=== PATIENT | female | born 1940 | race Caucasian/White ===

== ENCOUNTER 2021-08-29 15:52 | Inpatient (IN) | payer OTHER ==
[2021-08-29 17:05] LABS: BASO % 0.9 % (0-2.0); EOS % 2.7 % (0-4.5); HEMATOCRIT 24.2 % (32.4-45.2); LYMPH % 9.2 % (8-40); MCH 28.8 pg (25.7-33.7); MEAN CELL VOLUME 87.3 fl (80-96); MEAN PLT VOLUME 6.5 fl (7.5-11.1); MONO % 10.2 % (3.8-10.2); PLATELET COUNT 204 10^3/uL (134-434); RBC 2.77 M/mm3 (3.60-5.2); RDW 21.3 % (11.6-15.6); WHITE BLOOD COUNT 3.7 K/mm3 (4.0-10.0)
[2021-08-29 17:24] LABS: CALCIUM 9.2 mg/dL (8.5-10.1)
[2021-08-29 17:25] LABS: ALBUMIN 2.8 g/dl (3.4-5.0); BLOOD UREA NITROGEN 15.6 mg/dL (7-18)
[2021-08-29 17:28] LABS: CREATININE 0.6 mg/dL (0.55-1.3)
[2021-08-29 17:29] LABS: BILIRUBIN,TOTAL 0.5 mg/dL (0.2-1)
[2021-08-29 17:56] LABS: ANISOCYTOSIS 1+; MACROCYTOSIS 1+; PLATELET ESTIMATE NORMAL
[2021-08-29 19:17] LABS: PROTHROMBIN TIME (PATIENT) 63.5 SEC (9.7-13.0)
[2021-08-29 19:19] LABS: ACTIVATED PTT 52.3 SECONDS (25.2-36.5)
[2021-08-29 19:34] LABS: INR 5.57 (0.83-1.09)
[2021-08-30 08:24] VITALS: BMI 24.0
[2021-08-30 09:05] LABS: BASO % 1.3 % (0-2.0); EOS % 3.6 % (0-4.5); HEMATOCRIT 24.5 % (32.4-45.2); HEMOGLOBIN 8.3 GM/dL (10.7-15.3); LYMPH % 12.5 % (8-40); MCH 28.8 pg (25.7-33.7); MCHC 33.7 g/dl (32.0-36.0); MEAN CELL VOLUME 85.5 fl (80-96); MEAN PLT VOLUME 6.7 fl (7.5-11.1); MONO % 11.4 % (3.8-10.2); NEUT % 71.2 % (42.8-82.8); PLATELET COUNT 185 10^3/uL (134-434); RBC 2.87 M/mm3 (3.60-5.2); RDW 21.4 % (11.6-15.6)
[2021-08-30 09:22] LABS: PROTHROMBIN TIME (PATIENT) 57.6 SEC (9.7-13.0)
[2021-08-30 09:29] LABS: INR 4.85 (0.83-1.09)
[2021-08-30 09:30] LABS: BLOOD UREA NITROGEN 11.2 mg/dL (7-18); CALCIUM 8.5 mg/dL (8.5-10.1)
[2021-08-30 09:33] LABS: CREATININE 0.5 mg/dL (0.55-1.3)
[2021-08-30] MEDS ORDERED: ACETAMINOPHEN 325 MG TABLET (FP) PO PRN (13:45)
[2021-08-30] MEDS: POTASSIUM CHLORIDE TABS 10 MEQ TABLET.ER (FP) PO SCH (15:03)
[2021-08-30] MEDS: DONEPEZIL HCL 10 MG TABLET (FP) PO SCH (15:04)
[2021-08-30] MEDS: AMIODARONE HCL 200 MG TABLET PO SCH (15:04)
[2021-08-30] MEDS: HYDROCHLOROTHIAZIDE 12.5 MG CAPSULE (FP) PO SCH (15:04)
[2021-08-30] MEDS: DOCUSATE SODIUM 100 MG CAPSULE (FP) PO SCH (15:04)
[2021-08-30] MEDS: FERROUS SO4 325 MG TABLET (FP) PO SCH (15:04)
[2021-08-30] MEDS ORDERED: PT OWN MED DRAWER 7, Y5N ONE (15:34)
[2021-08-30] MEDS: MUPIROCIN 2% TOPICAL OINTMENT 22 GM TUBE TP SCH ×2 (16:00→21:18)
[2021-08-30] MEDS: WARFARIN NA 1 MG TABLET PO SCH (17:16)
[2021-08-31] MEDS: POTASSIUM CHLORIDE TABS 10 MEQ TABLET.ER (FP) PO SCH (09:26)
[2021-08-31] MEDS: DOCUSATE SODIUM 100 MG CAPSULE (FP) PO SCH (09:27)
[2021-08-31] MEDS: HYDROCHLOROTHIAZIDE 12.5 MG CAPSULE (FP) PO SCH (09:27)
[2021-08-31] MEDS: DONEPEZIL HCL 10 MG TABLET (FP) PO SCH (09:27)
[2021-08-31] MEDS: AMIODARONE HCL 200 MG TABLET PO SCH (09:27)
[2021-08-31] MEDS: FERROUS SO4 325 MG TABLET (FP) PO SCH (09:27)
[2021-08-31] MEDS: MUPIROCIN 2% TOPICAL OINTMENT 22 GM TUBE TP SCH ×2 (09:28→21:42)
[2021-08-31] MEDS ORDERED: FUROSEMIDE 40 MG/4 ML INJECTABLE VIAL IVPUSH ONE (13:30)
[2021-08-31 13:55] LABS: EOS % 2.8 % (0-4.5); HEMATOCRIT 27.2 % (32.4-45.2); LYMPH % 13.7 % (8-40); MCH 28.7 pg (25.7-33.7); MONO % 13.3 % (3.8-10.2); NEUT % 69.2 % (42.8-82.8); PLATELET COUNT 199 10^3/uL (134-434); RBC 3.12 M/mm3 (3.60-5.2); RDW 21.7 % (11.6-15.6); WHITE BLOOD COUNT 3.6 K/mm3 (4.0-10.0)
[2021-08-31 14:11] LABS: INR 3.4 (0.83-1.09); PROTHROMBIN TIME (PATIENT) 38.5 SEC (9.7-13.0)
[2021-08-31 14:13] LABS: ALBUMIN 2.7 g/dl (3.4-5.0); BLOOD UREA NITROGEN 9.6 mg/dL (7-18); CALCIUM 8.4 mg/dL (8.5-10.1)
[2021-08-31 14:17] LABS: CREATININE 0.5 mg/dL (0.55-1.3)
[2021-08-31 14:18] LABS: BILIRUBIN,TOTAL 0.8 mg/dL (0.2-1); TOT PROT 5.8 g/dl (6.4-8.2)
[2021-08-31 14:35] LABS: ERYTHROCYTE SEDIMENTATION RATE 8 mm/hr (0-30)
[2021-08-31] MEDS ORDERED: PT OWN MED DRAWER 7, Y5N ONE ×2 (17:15→17:39)
[2021-08-31] MEDS: WARFARIN NA 1 MG TABLET PO SCH ×2 (17:20→17:34)
[2021-08-31 21:22] LABS: HEMATOCRIT 26.7 % (32.4-45.2); HEMOGLOBIN 8.8 GM/dL (10.7-15.3); MCHC 33.1 g/dl (32.0-36.0); MEAN CELL VOLUME 87.6 fl (80-96); MEAN PLT VOLUME 7.6 fl (7.5-11.1); PLATELET COUNT 211 10^3/uL (134-434); RBC 3.05 M/mm3 (3.60-5.2); WHITE BLOOD COUNT 3.3 K/mm3 (4.0-10.0)
[2021-08-31 21:29] LABS: INR 3.33 (0.83-1.09); PROTHROMBIN TIME (PATIENT) 37.8 SEC (9.7-13.0)
[2021-08-31 21:31] LABS: ACTIVATED PTT 37.7 SECONDS (25.2-36.5)
[2021-09-01 09:29] LABS: BASO % 1.4 % (0-2.0); EOS % 4.3 % (0-4.5); HEMATOCRIT 27.3 % (32.4-45.2); HEMOGLOBIN 9.1 GM/dL (10.7-15.3); LYMPH % 18.9 % (8-40); MCH 29.4 pg (25.7-33.7); MCHC 33.2 g/dl (32.0-36.0); MEAN CELL VOLUME 88.6 fl (80-96); MEAN PLT VOLUME 6.9 fl (7.5-11.1); MONO % 15.1 % (3.8-10.2); NEUT % 60.3 % (42.8-82.8); PLATELET COUNT 214 10^3/uL (134-434); RBC 3.09 M/mm3 (3.60-5.2); RDW 22.3 % (11.6-15.6); WHITE BLOOD COUNT 2.7 K/mm3 (4.0-10.0)
[2021-09-01] MEDS: DONEPEZIL HCL 10 MG TABLET (FP) PO SCH (09:53)
[2021-09-01] MEDS: HYDROCHLOROTHIAZIDE 12.5 MG CAPSULE (FP) PO SCH (09:53)
[2021-09-01] MEDS: DOCUSATE SODIUM 100 MG CAPSULE (FP) PO SCH (09:53)
[2021-09-01] MEDS: AMIODARONE HCL 200 MG TABLET PO SCH (09:53)
[2021-09-01] MEDS: POTASSIUM CHLORIDE TABS 10 MEQ TABLET.ER (FP) PO SCH (09:53)
[2021-09-01] MEDS: MUPIROCIN 2% TOPICAL OINTMENT 22 GM TUBE TP SCH ×2 (09:53→21:01)
[2021-09-01] MEDS: FERROUS SO4 325 MG TABLET (FP) PO SCH (09:54)
[2021-09-01 10:04] LABS: ALBUMIN 2.5 g/dl (3.4-5.0); BLOOD UREA NITROGEN 9.3 mg/dL (7-18); CALCIUM 8.3 mg/dL (8.5-10.1)
[2021-09-01 10:08] LABS: CREATININE 0.6 mg/dL (0.55-1.3)
[2021-09-01 10:09] LABS: BILIRUBIN,TOTAL 0.7 mg/dL (0.2-1); TOT PROT 5.6 g/dl (6.4-8.2)
[2021-09-02 09:05] LABS: BASO % 1.5 % (0-2.0); HEMATOCRIT 26.8 % (32.4-45.2); HEMOGLOBIN 8.8 GM/dL (10.7-15.3); LYMPH % 18.3 % (8-40); MCH 29.1 pg (25.7-33.7); MEAN CELL VOLUME 88.1 fl (80-96); MEAN PLT VOLUME 6.9 fl (7.5-11.1); MONO % 15.5 % (3.8-10.2); NEUT % 58.7 % (42.8-82.8); PLATELET COUNT 196 10^3/uL (134-434); RBC 3.04 M/mm3 (3.60-5.2); RDW 21.6 % (11.6-15.6); WHITE BLOOD COUNT 2.7 K/mm3 (4.0-10.0)
[2021-09-02 09:12] LABS: INR 2.59 (0.83-1.09); PROTHROMBIN TIME (PATIENT) 29.3 SEC (9.7-13.0)
[2021-09-02 09:36] LABS: CALCIUM 8.3 mg/dL (8.5-10.1)
[2021-09-02 09:37] LABS: ALBUMIN 2.4 g/dl (3.4-5.0)
[2021-09-02 09:40] LABS: CREATININE 0.6 mg/dL (0.55-1.3)
[2021-09-02 09:41] LABS: BILIRUBIN,TOTAL 0.5 mg/dL (0.2-1); TOT PROT 5.3 g/dl (6.4-8.2)
[2021-09-02 10:02] LABS: ANISOCYTOSIS 1+; MACROCYTOSIS 1+; PLATELET ESTIMATE NORMAL
[2021-09-02] MEDS: DONEPEZIL HCL 10 MG TABLET (FP) PO SCH (10:57)
[2021-09-02] MEDS: DOCUSATE SODIUM 100 MG CAPSULE (FP) PO SCH (10:57)
[2021-09-02] MEDS: POTASSIUM CHLORIDE TABS 10 MEQ TABLET.ER (FP) PO SCH (10:57)
[2021-09-02] MEDS: AMIODARONE HCL 200 MG TABLET PO SCH (10:57)
[2021-09-02] MEDS: HYDROCHLOROTHIAZIDE 12.5 MG CAPSULE (FP) PO SCH ×2 (10:57→11:06)
[2021-09-02] MEDS: MUPIROCIN 2% TOPICAL OINTMENT 22 GM TUBE TP SCH ×2 (10:58→21:47)
[2021-09-02] MEDS: FERROUS SO4 325 MG TABLET (FP) PO SCH (10:58)
[2021-09-03 08:04] LABS: BASO % 1.9 % (0-2.0); EOS % 6.7 % (0-4.5); HEMATOCRIT 27.8 % (32.4-45.2); HEMOGLOBIN 9.3 GM/dL (10.7-15.3); LYMPH % 21.5 % (8-40); MCH 29.4 pg (25.7-33.7); MCHC 33.5 g/dl (32.0-36.0); MEAN CELL VOLUME 87.8 fl (80-96); MEAN PLT VOLUME 6.6 fl (7.5-11.1); MONO % 11.1 % (3.8-10.2); NEUT % 58.8 % (42.8-82.8); PLATELET COUNT 197 10^3/uL (134-434); RBC 3.17 M/mm3 (3.60-5.2); RDW 21.4 % (11.6-15.6); WHITE BLOOD COUNT 2.4 K/mm3 (4.0-10.0)
[2021-09-03 08:06] LABS: INR 2.01 (0.83-1.09); PROTHROMBIN TIME (PATIENT) 23.7 SEC (9.7-13.0)
[2021-09-03 08:18] LABS: CALCIUM 8.7 mg/dL (8.5-10.1)
[2021-09-03 08:19] LABS: BLOOD UREA NITROGEN 12.8 mg/dL (7-18)
[2021-09-03 08:22] LABS: CREATININE 0.6 mg/dL (0.55-1.3)
[2021-09-03] MEDS: AMIODARONE HCL 200 MG TABLET PO SCH (11:16)
[2021-09-03] MEDS: DOCUSATE SODIUM 100 MG CAPSULE (FP) PO SCH (11:16)
[2021-09-03] MEDS: HYDROCHLOROTHIAZIDE 12.5 MG CAPSULE (FP) PO SCH (11:16)
[2021-09-03] MEDS: POTASSIUM CHLORIDE TABS 10 MEQ TABLET.ER (FP) PO SCH (11:16)
[2021-09-03] MEDS: FERROUS SO4 325 MG TABLET (FP) PO SCH (11:16)
[2021-09-03] MEDS: MUPIROCIN 2% TOPICAL OINTMENT 22 GM TUBE TP SCH (11:17)
[2021-09-03] MEDS: DONEPEZIL HCL 10 MG TABLET (FP) PO SCH (11:17)
[2021-09-03 14:54] VITALS: BP 133/70; PULSE 72; TEMP 97.8
== END 2021-09-03 15:31 | DRG 605 ==
LOC: JER 15:52 → OBSVTOIN 18:54 → JERBED 18:54 → J8W 08-30 04:24
PROVIDERS: ADMIT Internal Medicine; ATTEND Internal Medicine
PROC: 30233N1 Transfusion of Nonautologous Red Blood Cells into Peripheral Vein, Percutaneous Approach (ICD-10-PCS; principal; 2021-08-29)
DX: S30.1XXA Contusion of abdominal wall, initial encounter (principal); D62 Acute posthemorrhagic anemia; I73.9 Peripheral vascular disease, unspecified; I48.91 Unspecified atrial fibrillation; I11.0 Hypertensive heart disease with heart failure; I50.9 Heart failure, unspecified; F03.90 Unspecified dementia, unspecified severity, without behavioral disturbance, psychotic disturbance, mood disturbance, and anxiety; D64.9 Anemia, unspecified; X58.XXXA Exposure to other specified factors, initial encounter; Y93.9 Activity, unspecified; Z95.2 Presence of prosthetic heart valve; Y92.9 Unspecified place or not applicable; Z95.0 Presence of cardiac pacemaker
CPT/HCPCS: 36415; 36430; 74176-TC; 80048; 80053; 82272; 82607; 82728; 83540; 83550; 84155; 84165; 85025; 85027; 85610; 85651; 85730; 86038; 86850; 86900; 86901; 86922; 93005; 93010; 99285-25; C9803; P9058; U0003; U0005

== ENCOUNTER 2022-02-25 10:36 | Observation (INO) | payer OTHER ==
[2022-02-25 11:15] VITALS: BMI 22.8
[2022-02-25 11:57] LABS: BASO % 1.2 % (0-2.0); EOS % 2.3 % (0-4.5); HEMATOCRIT 24.5 % (32.4-45.2); HEMOGLOBIN 7.9 GM/dL (10.7-15.3); LYMPH % 15.6 % (8-40); MCH 27.8 pg (25.7-33.7); MCHC 32.5 g/dl (32.0-36.0); MEAN CELL VOLUME 85.7 fl (80-96); MONO % 16.2 % (3.8-10.2); NEUT % 64.7 % (42.8-82.8); PLATELET COUNT 157 10^3/uL (134-434); RBC 2.85 M/mm3 (3.60-5.2); RDW 15.7 % (11.6-15.6); WHITE BLOOD COUNT 2.3 K/mm3 (4.0-10.0)
[2022-02-25 12:04] LABS: INR 2.98 (0.83-1.09); PROTHROMBIN TIME (PATIENT) 34.6 SEC (9.7-13.0)
[2022-02-25 12:07] LABS: ACTIVATED PTT 42.5 SECONDS (25.2-36.5)
[2022-02-25 12:17] LABS: ALBUMIN 2.9 g/dl (3.4-5.0); BLOOD UREA NITROGEN 16.2 mg/dL (7-18); CALCIUM 8.4 mg/dL (8.5-10.1)
[2022-02-25 12:20] LABS: CREATININE 0.6 mg/dL (0.55-1.3)
[2022-02-25 12:22] LABS: BILIRUBIN,TOTAL 0.3 mg/dL (0.2-1); TOT PROT 5.7 g/dl (6.4-8.2)
[2022-02-25] MEDS ORDERED: WARFARIN NA 1 MG TABLET PO SCH (18:00)
[2022-02-25] MEDS: DONEPEZIL HCL 10 MG TABLET (FP) PO SCH (21:34)
[2022-02-25] MEDS: DOCUSATE SODIUM 100 MG CAPSULE (FP) PO SCH (21:34)
[2022-02-25] MEDS: ACETAMINOPHEN 325 MG TABLET (FP) PO PRN (21:34)
[2022-02-26 08:58] LABS: INR 2.85 (0.83-1.09); PROTHROMBIN TIME (PATIENT) 33.1 SEC (9.7-13.0)
[2022-02-26 09:03] LABS: BASO % 1.2 % (0-2.0); EOS % 3.1 % (0-4.5); HEMATOCRIT 28.1 % (32.4-45.2); HEMOGLOBIN 9.4 GM/dL (10.7-15.3); LYMPH % 18.6 % (8-40); MCH 28.6 pg (25.7-33.7); MCHC 33.3 g/dl (32.0-36.0); MEAN CELL VOLUME 85.8 fl (80-96); MONO % 14.8 % (3.8-10.2); NEUT % 62.3 % (42.8-82.8); PLATELET COUNT 148 10^3/uL (134-434); RBC 3.27 M/mm3 (3.60-5.2); RDW 15.7 % (11.6-15.6); WHITE BLOOD COUNT 2.2 K/mm3 (4.0-10.0)
[2022-02-26 09:25] LABS: ALBUMIN 3.1 g/dl (3.4-5.0); BLOOD UREA NITROGEN 9.4 mg/dL (7-18)
[2022-02-26 09:28] LABS: CALCIUM 8.3 mg/dL (8.5-10.1)
[2022-02-26 09:31] LABS: CREATININE 0.5 mg/dL (0.55-1.3)
[2022-02-26 09:32] LABS: BILIRUBIN,TOTAL 0.7 mg/dL (0.2-1); TOT PROT 5.6 g/dl (6.4-8.2)
[2022-02-26] MEDS: PANTOPRAZOLE 20 MG TABLET PO SCH (09:45)
[2022-02-26] MEDS: POTASSIUM CHLORIDE TABS 20 MEQ TABLET.ER (FP) PO SCH (09:45)
[2022-02-26] MEDS: ACETAMINOPHEN 325 MG TABLET (FP) PO PRN ×2 (09:45→21:30)
[2022-02-26] MEDS: AMIODARONE HCL 200 MG TABLET PO SCH (09:45)
[2022-02-26] MEDS: HYDROCHLOROTHIAZIDE 25 MG TABLET (FP) PO SCH (09:45)
[2022-02-26] MEDS: FERROUS SO4 325 MG TABLET (FP) PO SCH (09:45)
[2022-02-26] MEDS: SODIUM CHLORIDE 1 GM TABLET PO SCH (14:45)
[2022-02-26] MEDS: DONEPEZIL HCL 10 MG TABLET (FP) PO SCH (21:33)
[2022-02-26] MEDS: DOCUSATE SODIUM 100 MG CAPSULE (FP) PO SCH (21:33)
[2022-02-27] MEDS ORDERED: AMINO ACIDS/PROTEIN HYDROLYS 30 ML LIQUID.PKT PO SCH (08:00)
[2022-02-27 08:59] LABS: BASO % 1.2 % (0-2.0); EOS % 3.4 % (0-4.5); HEMATOCRIT 31.1 % (32.4-45.2); HEMOGLOBIN 10.4 GM/dL (10.7-15.3); LYMPH % 15.3 % (8-40); MCH 28.3 pg (25.7-33.7); MCHC 33.5 g/dl (32.0-36.0); MEAN CELL VOLUME 84.7 fl (80-96); MEAN PLT VOLUME 7.3 fl (7.5-11.1); MONO % 16.7 % (3.8-10.2); NEUT % 63.4 % (42.8-82.8); PLATELET COUNT 166 10^3/uL (134-434); RBC 3.67 M/mm3 (3.60-5.2); RDW 15.7 % (11.6-15.6); WHITE BLOOD COUNT 2.3 K/mm3 (4.0-10.0)
[2022-02-27 09:08] LABS: INR 2.47 (0.83-1.09); PROTHROMBIN TIME (PATIENT) 28.7 SEC (9.7-13.0)
[2022-02-27 09:25] LABS: CALCIUM 8.5 mg/dL (8.5-10.1)
[2022-02-27 09:27] LABS: CREATININE 0.5 mg/dL (0.55-1.3)
[2022-02-27] MEDS ORDERED: MULTIVITAMINS (DAILY MVI) TABLET (FP) PO SCH (10:00)
[2022-02-27] MEDS: POTASSIUM CHLORIDE TABS 20 MEQ TABLET.ER (FP) PO SCH (10:14)
[2022-02-27] MEDS: AMIODARONE HCL 200 MG TABLET PO SCH (10:14)
[2022-02-27] MEDS: FERROUS SO4 325 MG TABLET (FP) PO SCH (10:14)
[2022-02-27] MEDS: PANTOPRAZOLE 20 MG TABLET PO SCH (10:14)
[2022-02-27] MEDS: SODIUM CHLORIDE 1 GM TABLET PO SCH (10:14)
[2022-02-27] MEDS: HYDROCHLOROTHIAZIDE 25 MG TABLET (FP) PO SCH (10:14)
[2022-02-27 13:52] VITALS: TEMP 97.9
[2022-02-27 14:27] VITALS: BP 92/53; PULSE 62
[2022-02-27] MEDS ORDERED: WARFARIN NA 1 MG TABLET PO SCH ×2 (15:22→18:00)
[2022-02-28] MEDS ORDERED: WARFARIN NA 1 MG TABLET PO SCH (18:00)
== END 2022-02-27 19:39 ==
LOC: JER 10:36 → JERBED 12:36 → J8W 15:49
PROVIDERS: ADMIT Internal Medicine; ATTEND Internal Medicine
PROC: 30233N1 Transfusion of Nonautologous Red Blood Cells into Peripheral Vein, Percutaneous Approach (ICD-10-PCS; principal; 2022-02-25)
DX: D64.9 Anemia, unspecified (principal); I48.91 Unspecified atrial fibrillation; F41.8 Other specified anxiety disorders; F03.90 Unspecified dementia, unspecified severity, without behavioral disturbance, psychotic disturbance, mood disturbance, and anxiety; Z88.8 Allergy status to other drugs, medicaments and biological substances; I99.9 Unspecified disorder of circulatory system; I05.9 Rheumatic mitral valve disease, unspecified; Z79.01 Long term (current) use of anticoagulants; D72.819 Decreased white blood cell count, unspecified
CPT/HCPCS: 36415; 36430; 71045-TC-FY; 80048; 80053; 82272; 82607; 82728; 83540; 85025; 85610; 85730; 86850; 86900; 86901; 86922; 93005; 93010; 99285-25; C9803-CS; G0378; P9058; U0003; U0005

== ENCOUNTER 2022-07-09 15:25 | Inpatient (IN) | payer OTHER ==
[2022-07-09 16:05] VITALS: BMI 23.6
[2022-07-09 19:15] LABS: BASO % 1.1 % (0-2.0); EOS % 3.1 % (0-4.5); HEMATOCRIT 20.9 % (32.4-45.2); LYMPH % 13.4 % (8-40); MCHC 31.6 g/dl (32.0-36.0); MEAN CELL VOLUME 85.4 fl (80-96); MEAN PLT VOLUME 7.1 fl (7.5-11.1); MONO % 9.2 % (3.8-10.2); NEUT % 73.2 % (42.8-82.8); PLATELET COUNT 185 10^3/uL (134-434); RBC 2.45 M/mm3 (3.60-5.2); RDW 16.1 % (11.6-15.6); WHITE BLOOD COUNT 3.3 K/mm3 (4.0-10.0)
[2022-07-09 19:22] LABS: INR 3.79 (0.83-1.09); PROTHROMBIN TIME (PATIENT) 44.2 SEC (9.7-13.0)
[2022-07-09 19:23] LABS: HEMOGLOBIN 6.6 GM/dL (10.7-15.3)
[2022-07-09 19:30] LABS: ALBUMIN 2.6 g/dl (3.4-5.0); BLOOD UREA NITROGEN 20.2 mg/dL (7-18); CALCIUM 8.3 mg/dL (8.5-10.1)
[2022-07-09 19:31] LABS: MAGNESIUM 1.9 mg/dL (1.8-2.4)
[2022-07-09 19:34] LABS: CREATININE 0.6 mg/dL (0.55-1.3)
[2022-07-09 19:35] LABS: BILIRUBIN,TOTAL 0.3 mg/dL (0.2-1); TOT PROT 5.2 g/dl (6.4-8.2)
[2022-07-09 22:37] LABS: EPI CELLS 10 /uL (0-25.1); HYALINE CASTS 0 /uL (0-3.1); PH,URINE 7.5 (5.0-8.0); URINE APPEARANCE CLOUDY; URINE BACTERIA 210 /uL (0-1359); URINE BILIRUBIN NEGATIVE (NEGATIVE); URINE COLOR YELLOW; URINE GLUCOSE (UA) NEGATIVE (NEGATIVE); URINE KETONE NEGATIVE (NEGATIVE); URINE LEUK ESTERASE 1+ (NEGATIVE); URINE NITRITE NEGATIVE (NEGATIVE); URINE PROTEIN NEGATIVE (NEGATIVE); URINE RBC 16 /uL (0-23.9); URINE WBC 15 /uL (0-25.8)
[2022-07-10] MEDS ORDERED: MELATONIN 5 MG TABLETS PO ONE (01:35)
[2022-07-10] MEDS ORDERED: MELATONIN 5 MG TABLETS ONE (01:36)
[2022-07-10 06:48] LABS: BASO % 1.3 % (0-2.0); EOS % 3.4 % (0-4.5); HEMATOCRIT 24.4 % (32.4-45.2); HEMOGLOBIN 7.9 GM/dL (10.7-15.3); LYMPH % 10.9 % (8-40); MCH 27.4 pg (25.7-33.7); MCHC 32.3 g/dl (32.0-36.0); MEAN PLT VOLUME 7.2 fl (7.5-11.1); MONO % 12.4 % (3.8-10.2); PLATELET COUNT 168 10^3/uL (134-434); RBC 2.88 M/mm3 (3.60-5.2); RDW 15.8 % (11.6-15.6); WHITE BLOOD COUNT 3.6 K/mm3 (4.0-10.0)
[2022-07-10 07:04] LABS: INR 3.43 (0.83-1.09); PROTHROMBIN TIME (PATIENT) 39.9 SEC (9.7-13.0)
[2022-07-10 07:08] LABS: ALBUMIN 2.6 g/dl (3.4-5.0); BLOOD UREA NITROGEN 17.5 mg/dL (7-18); MAGNESIUM 1.7 mg/dL (1.8-2.4)
[2022-07-10 07:11] LABS: CREATININE 0.5 mg/dL (0.55-1.3); PHOSPHOROUS 2.3 mg/dL (2.5-4.9)
[2022-07-10 07:12] LABS: BILIRUBIN,TOTAL 0.8 mg/dL (0.2-1); TOT PROT 5.2 g/dl (6.4-8.2)
[2022-07-10] MEDS ORDERED: PANTOPRAZOLE SODIUM 40 MG/100 ML BAG IVPB ONE (09:10)
[2022-07-10] MEDS ORDERED: CEFTRIAXONE 1 GM/50 ML BAG ONE (09:11)
[2022-07-10] MEDS: CEFTRIAXONE 1 GM in DEXTROSE 5%-WATER - 50 ML IVPB SCH (09:15)
[2022-07-10] MEDS: PANTOPRAZOLE SODIUM 40 MG VIAL IVPUSH SCH (09:53)
[2022-07-11] MEDS: CEFTRIAXONE 1 GM in DEXTROSE 5%-WATER - 50 ML IVPB SCH (09:07)
[2022-07-11] MEDS: PANTOPRAZOLE SODIUM 40 MG VIAL IVPUSH SCH (09:07)
[2022-07-11] MEDS ORDERED: MAGNESIUM SULF 50% (8.12 MEQ/2 ML-1 GM VIAL) IVPB ONE (09:39)
[2022-07-11] MEDS: AMIODARONE HCL 200 MG TABLET PO SCH (09:56)
[2022-07-11] MEDS: ASCORBIC ACID 500 MG TABLET (FP) PO SCH (09:56)
[2022-07-11] MEDS ORDERED: IRON SUCROSE INJECTION 200 MG in SODIUM CHLORIDE 90 ML IVPB ONE (10:15)
[2022-07-11] MEDS: DOCUSATE SODIUM 100 MG CAPSULE (FP) PO SCH (21:44)
[2022-07-11] MEDS: MELATONIN 5 MG TABLETS PO PRN (21:44)
[2022-07-11] MEDS: DONEPEZIL HCL 10 MG TABLET (FP) PO SCH (21:44)
[2022-07-12 07:25] LABS: EOS % 1.7 % (0-4.5); HEMOGLOBIN 8.4 GM/dL (10.7-15.3); LYMPH % 7.8 % (8-40); MCH 27.3 pg (25.7-33.7); MCHC 32.3 g/dl (32.0-36.0); MEAN CELL VOLUME 84.5 fl (80-96); MEAN PLT VOLUME 7.2 fl (7.5-11.1); MONO % 16.7 % (3.8-10.2); NEUT % 72.8 % (42.8-82.8); PLATELET COUNT 169 10^3/uL (134-434); RBC 3.08 M/mm3 (3.60-5.2); RDW 15.9 % (11.6-15.6); WHITE BLOOD COUNT 3.5 K/mm3 (4.0-10.0)
[2022-07-12 07:57] LABS: INR 2.54 (0.83-1.09); PROTHROMBIN TIME (PATIENT) 29.5 SEC (9.7-13.0)
[2022-07-12] MEDS: PANTOPRAZOLE SODIUM 40 MG VIAL IVPUSH SCH (09:30)
[2022-07-12] MEDS: CEFTRIAXONE 1 GM in DEXTROSE 5%-WATER - 50 ML IVPB SCH (09:30)
[2022-07-12] MEDS: AMIODARONE HCL 200 MG TABLET PO SCH (09:33)
[2022-07-12] MEDS: ASCORBIC ACID 500 MG TABLET (FP) PO SCH (09:34)
[2022-07-12] MEDS: MELATONIN 5 MG TABLETS PO PRN (21:13)
[2022-07-12] MEDS: DOCUSATE SODIUM 100 MG CAPSULE (FP) PO SCH (21:13)
[2022-07-12] MEDS: DONEPEZIL HCL 10 MG TABLET (FP) PO SCH (21:13)
[2022-07-13] MEDS: CEFTRIAXONE 1 GM in DEXTROSE 5%-WATER - 50 ML IVPB SCH (09:53)
[2022-07-13] MEDS: AMIODARONE HCL 200 MG TABLET PO SCH (09:54)
[2022-07-13] MEDS: PANTOPRAZOLE SODIUM 40 MG VIAL IVPUSH SCH (09:54)
[2022-07-13] MEDS: ASCORBIC ACID 500 MG TABLET (FP) PO SCH (09:54)
[2022-07-13] MEDS ORDERED: MAGNESIUM 2GM/50ML STERILE WATER IVPB IVPB ONE (10:15)
[2022-07-13] MEDS ORDERED: SODIUM CHLORIDE 1,000 ML IV SCH (10:30)
[2022-07-13] MEDS: NAPH,MB-DB/K PH,MBDB POWDER PACKET PO SCH ×3 (11:17→22:46)
[2022-07-13 16:33] LABS: INR 1.96 (0.83-1.09); PROTHROMBIN TIME (PATIENT) 22.7 SEC (9.7-13.0)
[2022-07-13 16:43] LABS: BASO % 1.3 % (0-2.0); EOS % 2.1 % (0-4.5); HEMATOCRIT 25.2 % (32.4-45.2); HEMOGLOBIN 8.2 GM/dL (10.7-15.3); LYMPH % 12.1 % (8-40); MCH 27.4 pg (25.7-33.7); MCHC 32.4 g/dl (32.0-36.0); MEAN CELL VOLUME 84.7 fl (80-96); MEAN PLT VOLUME 7.4 fl (7.5-11.1); MONO % 16.5 % (3.8-10.2); PLATELET COUNT 202 10^3/uL (134-434); RBC 2.98 M/mm3 (3.60-5.2); WHITE BLOOD COUNT 3.1 K/mm3 (4.0-10.0)
[2022-07-13 16:44] LABS: ALBUMIN 2.6 g/dl (3.4-5.0); CALCIUM 8.2 mg/dL (8.5-10.1)
[2022-07-13 16:45] LABS: BLOOD UREA NITROGEN 12.1 mg/dL (7-18); MAGNESIUM 2.6 mg/dL (1.8-2.4)
[2022-07-13 16:47] LABS: CREATININE 0.7 mg/dL (0.55-1.3); PHOSPHOROUS 2.4 mg/dL (2.5-4.9)
[2022-07-13 16:49] LABS: BILIRUBIN,TOTAL 0.3 mg/dL (0.2-1); TOT PROT 5.3 g/dl (6.4-8.2)
[2022-07-13] MEDS: DONEPEZIL HCL 10 MG TABLET (FP) PO SCH (22:46)
[2022-07-13] MEDS: DOCUSATE SODIUM 100 MG CAPSULE (FP) PO SCH (22:46)
[2022-07-13] MEDS: MELATONIN 5 MG TABLETS PO PRN (22:46)
[2022-07-14] MEDS ORDERED: MELATONIN 5 MG TABLETS PO ONE (01:23)
[2022-07-14 07:07] LABS: HEMATOCRIT 23.4 % (32.4-45.2); HEMOGLOBIN 7.8 GM/dL (10.7-15.3); MCH 27.9 pg (25.7-33.7); MCHC 33.2 g/dl (32.0-36.0); MEAN CELL VOLUME 84.1 fl (80-96); MEAN PLT VOLUME 6.8 fl (7.5-11.1); PLATELET COUNT 173 10^3/uL (134-434); RBC 2.78 M/mm3 (3.60-5.2); RDW 15.7 % (11.6-15.6)
[2022-07-14 07:37] LABS: ALBUMIN 2.5 g/dl (3.4-5.0); BLOOD UREA NITROGEN 10.7 mg/dL (7-18); CALCIUM 8.2 mg/dL (8.5-10.1); MAGNESIUM 2.2 mg/dL (1.8-2.4)
[2022-07-14 07:41] LABS: CREATININE 0.4 mg/dL (0.55-1.3); PHOSPHOROUS 2.6 mg/dL (2.5-4.9)
[2022-07-14 07:42] LABS: BILIRUBIN,TOTAL 0.4 mg/dL (0.2-1)
[2022-07-14] MEDS ORDERED: SODIUM CHLORIDE 1,000 ML IV SCH (07:45)
[2022-07-14] MEDS: ASCORBIC ACID 500 MG TABLET (FP) PO SCH (09:19)
[2022-07-14] MEDS: AMIODARONE HCL 200 MG TABLET PO SCH (09:19)
[2022-07-14] MEDS: PANTOPRAZOLE SODIUM 40 MG VIAL IVPUSH SCH (09:19)
[2022-07-14] MEDS: CEFTRIAXONE 1 GM in DEXTROSE 5%-WATER - 50 ML IVPB SCH (09:19)
[2022-07-14 09:42] LABS: ANISOCYTOSIS 0; MACROCYTOSIS 0
[2022-07-14 17:41] LABS: N-TERMINAL BNP 1697.4 pg/ml (5-450)
[2022-07-14] MEDS: METOPROLOL TARTRATE 25 MG TABLET (FP) PO SCH (23:06)
[2022-07-14] MEDS: MELATONIN 5 MG TABLETS PO PRN (23:06)
[2022-07-14] MEDS: DONEPEZIL HCL 10 MG TABLET (FP) PO SCH (23:06)
[2022-07-14] MEDS: DOCUSATE SODIUM 100 MG CAPSULE (FP) PO SCH (23:06)
[2022-07-15 07:43] LABS: BASO % 1.3 % (0-2.0); EOS % 7.4 % (0-4.5); HEMATOCRIT 29.8 % (32.4-45.2); HEMOGLOBIN 9.6 GM/dL (10.7-15.3); LYMPH % 14.8 % (8-40); MCHC 32.3 g/dl (32.0-36.0); MEAN CELL VOLUME 83.7 fl (80-96); MEAN PLT VOLUME 7.1 fl (7.5-11.1); MONO % 13.6 % (3.8-10.2); NEUT % 62.9 % (42.8-82.8); PLATELET COUNT 197 10^3/uL (134-434); RBC 3.56 M/mm3 (3.60-5.2); RDW 17.6 % (11.6-15.6); WHITE BLOOD COUNT 2.5 K/mm3 (4.0-10.0)
[2022-07-15 08:26] LABS: ALBUMIN 2.6 g/dl (3.4-5.0); BILIRUBIN,TOTAL 1.3 mg/dL (0.2-1); BLOOD UREA NITROGEN 9.1 mg/dL (7-18); CALCIUM 8.2 mg/dL (8.5-10.1); CREATININE 0.5 mg/dL (0.55-1.3); PHOSPHOROUS 2.4 mg/dL (2.5-4.9); TOT PROT 5.3 g/dl (6.4-8.2)
[2022-07-15] MEDS ORDERED: cefTRIAXone SODIUM 1 GM VIAL ONE (10:09)
[2022-07-15] MEDS: PANTOPRAZOLE SODIUM 40 MG VIAL IVPUSH SCH (10:17)
[2022-07-15] MEDS: ASCORBIC ACID 500 MG TABLET (FP) PO SCH (10:17)
[2022-07-15] MEDS: CEFTRIAXONE 1 GM in DEXTROSE 5%-WATER - 50 ML IVPB SCH (10:17)
[2022-07-15] MEDS: METOPROLOL TARTRATE 25 MG TABLET (FP) PO SCH ×2 (10:17→22:05)
[2022-07-15] MEDS ORDERED: IRON SUCROSE INJECTION 200 MG in SODIUM CHLORIDE 90 ML IVPB ONE (15:17)
[2022-07-15] MEDS ORDERED: HEPARIN NA (PORCINE) 5,000 UNITS/ML 1ML VIAL IVPUSH PRN ×2 (15:20)
[2022-07-15] MEDS: NAPH,MB-DB/K PH,MBDB POWDER PACKET PO SCH ×2 (15:21→22:06)
[2022-07-15] MEDS: HEPARIN - 25,000 UNIT in SODIUM CHLORIDE 495 ML IV SCH (17:20)
[2022-07-15] MEDS: MELATONIN 5 MG TABLETS PO PRN (22:05)
[2022-07-15] MEDS: DOCUSATE SODIUM 100 MG CAPSULE (FP) PO SCH (22:06)
[2022-07-15] MEDS: DONEPEZIL HCL 10 MG TABLET (FP) PO SCH (22:06)
[2022-07-16] MEDS: NAPH,MB-DB/K PH,MBDB POWDER PACKET PO SCH (06:07)
[2022-07-16 08:57] LABS: BASO % 2.6 % (0-2.0); EOS % 6.3 % (0-4.5); HEMATOCRIT 30.4 % (32.4-45.2); HEMOGLOBIN 9.9 GM/dL (10.7-15.3); LYMPH % 16.9 % (8-40); MCH 27.8 pg (25.7-33.7); MCHC 32.8 g/dl (32.0-36.0); MEAN CELL VOLUME 84.9 fl (80-96); MEAN PLT VOLUME 6.8 fl (7.5-11.1); MONO % 13.9 % (3.8-10.2); NEUT % 60.3 % (42.8-82.8); PLATELET COUNT 174 10^3/uL (134-434); RBC 3.58 M/mm3 (3.60-5.2); RDW 18.1 % (11.6-15.6); WHITE BLOOD COUNT 2.5 K/mm3 (4.0-10.0)
[2022-07-16 09:32] LABS: INR 1.63 (0.83-1.09); PROTHROMBIN TIME (PATIENT) 18.8 SEC (9.7-13.0)
[2022-07-16 09:45] LABS: CALCIUM 8.5 mg/dL (8.5-10.1)
[2022-07-16 09:46] LABS: ALBUMIN 2.6 g/dl (3.4-5.0); BLOOD UREA NITROGEN 8.4 mg/dL (7-18); MAGNESIUM 1.9 mg/dL (1.8-2.4)
[2022-07-16 09:47] LABS: CREATININE 0.5 mg/dL (0.55-1.3); PHOSPHOROUS 2.7 mg/dL (2.5-4.9)
[2022-07-16 09:48] LABS: BILIRUBIN,TOTAL 0.4 mg/dL (0.2-1); TOT PROT 5.3 g/dl (6.4-8.2)
[2022-07-16] MEDS: CEFTRIAXONE 1 GM in DEXTROSE 5%-WATER - 50 ML IVPB SCH (10:45)
[2022-07-16] MEDS: PANTOPRAZOLE SODIUM 40 MG VIAL IVPUSH SCH (10:45)
[2022-07-16] MEDS: METOPROLOL TARTRATE 25 MG TABLET (FP) PO SCH ×2 (10:47→21:34)
[2022-07-16] MEDS: ASCORBIC ACID 500 MG TABLET (FP) PO SCH (10:47)
[2022-07-16] MEDS: HEPARIN - 25,000 UNIT in SODIUM CHLORIDE 495 ML IV SCH (17:10)
[2022-07-16] MEDS: SODIUM CHLORIDE 1,000 ML IV SCH (17:12)
[2022-07-16] MEDS ORDERED: WARFARIN NA 3 MG TABLET PO ONE (18:00)
[2022-07-16] MEDS: DOCUSATE SODIUM 100 MG CAPSULE (FP) PO SCH (21:34)
[2022-07-16] MEDS: DONEPEZIL HCL 10 MG TABLET (FP) PO SCH (21:34)
[2022-07-17 08:17] LABS: BASO % 1.7 % (0-2.0); EOS % 4.1 % (0-4.5); HEMATOCRIT 26.6 % (32.4-45.2); HEMOGLOBIN 8.9 GM/dL (10.7-15.3); LYMPH % 19.9 % (8-40); MCH 28.2 pg (25.7-33.7); MCHC 33.5 g/dl (32.0-36.0); MEAN CELL VOLUME 84.3 fl (80-96); MEAN PLT VOLUME 7.4 fl (7.5-11.1); MONO % 11.9 % (3.8-10.2); NEUT % 62.4 % (42.8-82.8); PLATELET COUNT 175 10^3/uL (134-434); RBC 3.16 M/mm3 (3.60-5.2); RDW 17.6 % (11.6-15.6); WHITE BLOOD COUNT 2.6 K/mm3 (4.0-10.0)
[2022-07-17 08:21] LABS: INR 1.49 (0.83-1.09); PROTHROMBIN TIME (PATIENT) 17.2 SEC (9.7-13.0)
[2022-07-17 08:39] LABS: CALCIUM 7.8 mg/dL (8.5-10.1)
[2022-07-17 08:41] LABS: ALBUMIN 2.5 g/dl (3.4-5.0); BLOOD UREA NITROGEN 10.7 mg/dL (7-18); MAGNESIUM 1.8 mg/dL (1.8-2.4)
[2022-07-17 08:43] LABS: PHOSPHOROUS 2.5 mg/dL (2.5-4.9)
[2022-07-17 08:44] LABS: CREATININE 0.5 mg/dL (0.55-1.3)
[2022-07-17 08:45] LABS: BILIRUBIN,TOTAL 0.3 mg/dL (0.2-1)
[2022-07-17] MEDS: ASCORBIC ACID 500 MG TABLET (FP) PO SCH (10:24)
[2022-07-17] MEDS: METOPROLOL TARTRATE 25 MG TABLET (FP) PO SCH ×2 (10:24→21:55)
[2022-07-17] MEDS: PANTOPRAZOLE SODIUM 40 MG VIAL IVPUSH SCH (11:40)
[2022-07-17] MEDS ORDERED: WARFARIN NA 3 MG TABLET PO ONE (18:00)
[2022-07-17] MEDS: ACETAMINOPHEN 325 MG TABLET (FP) PO PRN (21:55)
[2022-07-17] MEDS: DOCUSATE SODIUM 100 MG CAPSULE (FP) PO SCH (21:55)
[2022-07-17] MEDS: DONEPEZIL HCL 10 MG TABLET (FP) PO SCH (21:55)
[2022-07-18 09:12] LABS: HEMATOCRIT 27.5 % (32.4-45.2); HEMOGLOBIN 8.9 GM/dL (10.7-15.3); MCH 27.6 pg (25.7-33.7); MCHC 32.4 g/dl (32.0-36.0); MEAN CELL VOLUME 85.4 fl (80-96); MEAN PLT VOLUME 7.5 fl (7.5-11.1); PLATELET COUNT 187 10^3/uL (134-434); RBC 3.22 M/mm3 (3.60-5.2); RDW 17.8 % (11.6-15.6); WHITE BLOOD COUNT 2.3 K/mm3 (4.0-10.0)
[2022-07-18 09:23] LABS: INR 1.79 (0.83-1.09); PROTHROMBIN TIME (PATIENT) 20.7 SEC (9.7-13.0)
[2022-07-18] MEDS: HEPARIN - 25,000 UNIT in SODIUM CHLORIDE 495 ML IV SCH ×3 (10:00→17:56)
[2022-07-18 10:12] LABS: CALCIUM 8.1 mg/dL (8.5-10.1)
[2022-07-18 10:14] LABS: ALBUMIN 2.6 g/dl (3.4-5.0); MAGNESIUM 1.8 mg/dL (1.8-2.4)
[2022-07-18 10:16] LABS: CREATININE 0.5 mg/dL (0.55-1.3); PHOSPHOROUS 2.2 mg/dL (2.5-4.9)
[2022-07-18 10:17] LABS: BILIRUBIN,TOTAL 0.4 mg/dL (0.2-1)
[2022-07-18 10:19] LABS: TOT PROT 5.1 g/dl (6.4-8.2)
[2022-07-18] MEDS: METOPROLOL TARTRATE 25 MG TABLET (FP) PO SCH ×2 (10:35→22:30)
[2022-07-18] MEDS: ASCORBIC ACID 500 MG TABLET (FP) PO SCH (10:35)
[2022-07-18] MEDS: PANTOPRAZOLE SODIUM 40 MG VIAL IVPUSH SCH (10:35)
[2022-07-18 10:48] LABS: ANISOCYTOSIS 0; HELMET CELLS 0; HOWELL-JOLLY BODIES 0; MACROCYTOSIS 0; OVALOCYTE 0; ROULEAU 0; SICKELED CELLS 0; TARGET CELLS 0; TEAR DROP CELLS 0; TOXIC GRANULATION 0
[2022-07-18] MEDS: SODIUM CHLORIDE 1,000 ML IV SCH (17:00)
[2022-07-18] MEDS ORDERED: WARFARIN NA 3 MG TABLET PO ONE (18:00)
[2022-07-18] MEDS: DOCUSATE SODIUM 100 MG CAPSULE (FP) PO SCH (22:27)
[2022-07-18] MEDS: DONEPEZIL HCL 10 MG TABLET (FP) PO SCH (22:27)
[2022-07-18] MEDS: ACETAMINOPHEN 325 MG TABLET (FP) PO PRN (22:27)
[2022-07-18] MEDS: MELATONIN 5 MG TABLETS PO PRN (22:27)
[2022-07-19 08:43] LABS: INR 2.55 (0.83-1.09); PROTHROMBIN TIME (PATIENT) 29.6 SEC (9.7-13.0)
[2022-07-19 08:50] LABS: BASO % 1.6 % (0-2.0); EOS % 10.1 % (0-4.5); HEMOGLOBIN 8.9 GM/dL (10.7-15.3); LYMPH % 12.8 % (8-40); MCH 28.1 pg (25.7-33.7); MCHC 33.2 g/dl (32.0-36.0); MEAN CELL VOLUME 84.8 fl (80-96); MEAN PLT VOLUME 7.3 fl (7.5-11.1); MONO % 9.2 % (3.8-10.2); NEUT % 66.3 % (42.8-82.8); PLATELET COUNT 168 10^3/uL (134-434); RBC 3.18 M/mm3 (3.60-5.2); RDW 17.9 % (11.6-15.6); WHITE BLOOD COUNT 2.8 K/mm3 (4.0-10.0)
[2022-07-19 09:06] LABS: PHOSPHOROUS 2.3 mg/dL (2.5-4.9)
[2022-07-19 09:07] LABS: TOT PROT 4.9 g/dl (6.4-8.2)
[2022-07-19 09:09] LABS: ALBUMIN 2.5 g/dl (3.4-5.0); BILIRUBIN,TOTAL 0.3 mg/dL (0.2-1); BLOOD UREA NITROGEN 8.4 mg/dL (7-18)
[2022-07-19 09:11] LABS: MAGNESIUM 1.7 mg/dL (1.8-2.4)
[2022-07-19 09:12] LABS: CREATININE 0.4 mg/dL (0.55-1.3)
[2022-07-19] MEDS: METOPROLOL TARTRATE 25 MG TABLET (FP) PO SCH ×2 (09:56→21:56)
[2022-07-19] MEDS: ASCORBIC ACID 500 MG TABLET (FP) PO SCH (09:57)
[2022-07-19] MEDS: PANTOPRAZOLE SODIUM 40 MG VIAL IVPUSH SCH (09:57)
[2022-07-19] MEDS ORDERED: WARFARIN NA 2 MG TABLET PO ONE (12:00)
[2022-07-19] MEDS ORDERED: MAGNESIUM SULF 50% (8.12 MEQ/2 ML-1 GM VIAL) IVPB ONE (12:19)
[2022-07-19] MEDS: NAPH,MB-DB/K PH,MBDB POWDER PACKET PO SCH ×2 (13:17→21:57)
[2022-07-19] MEDS: DOCUSATE SODIUM 100 MG CAPSULE (FP) PO SCH (21:56)
[2022-07-19] MEDS: DONEPEZIL HCL 10 MG TABLET (FP) PO SCH (21:56)
[2022-07-19] MEDS: MELATONIN 5 MG TABLETS PO PRN (21:56)
[2022-07-19] MEDS: ACETAMINOPHEN 325 MG TABLET (FP) PO PRN (22:02)
[2022-07-20] MEDS: NAPH,MB-DB/K PH,MBDB POWDER PACKET PO SCH ×2 (06:45→13:06)
[2022-07-20 08:16] LABS: INR 3.26 (0.83-1.09); PROTHROMBIN TIME (PATIENT) 37.9 SEC (9.7-13.0)
[2022-07-20 08:22] LABS: CALCIUM 8.5 mg/dL (8.5-10.1)
[2022-07-20 08:23] LABS: ALBUMIN 2.6 g/dl (3.4-5.0); BLOOD UREA NITROGEN 11.2 mg/dL (7-18)
[2022-07-20 08:26] LABS: CREATININE 0.6 mg/dL (0.55-1.3)
[2022-07-20 08:27] LABS: TOT PROT 5.2 g/dl (6.4-8.2)
[2022-07-20 08:28] LABS: BILIRUBIN,TOTAL 0.3 mg/dL (0.2-1)
[2022-07-20 09:04] LABS: BASO % 1.7 % (0-2.0); HEMATOCRIT 28.7 % (32.4-45.2); HEMOGLOBIN 9.3 GM/dL (10.7-15.3); LYMPH % 9.4 % (8-40); MCH 27.8 pg (25.7-33.7); MCHC 32.4 g/dl (32.0-36.0); MEAN PLT VOLUME 7.4 fl (7.5-11.1); MONO % 8.9 % (3.8-10.2); PLATELET COUNT 101 10^3/uL (134-434); RBC 3.34 M/mm3 (3.60-5.2); RDW 17.8 % (11.6-15.6); WHITE BLOOD COUNT 3.3 K/mm3 (4.0-10.0)
[2022-07-20] MEDS: ASCORBIC ACID 500 MG TABLET (FP) PO SCH (10:03)
[2022-07-20] MEDS: PANTOPRAZOLE SODIUM 40 MG VIAL IVPUSH SCH (10:03)
[2022-07-20] MEDS: METOPROLOL TARTRATE 25 MG TABLET (FP) PO SCH (10:03)
[2022-07-20 16:06] VITALS: BP 130/74; PULSE 62; RESP 20; TEMP 97.9
== END 2022-07-20 17:30 | DRG 812 ==
LOC: JER 15:25 → JERBED 19:49 → J4W 07-10 20:58 → OBSVTOIN 07-13 10:09
PROVIDERS: ADMIT Internal Medicine; ATTEND Internal Medicine
PROC: 30233N1 Transfusion of Nonautologous Red Blood Cells into Peripheral Vein, Percutaneous Approach (ICD-10-PCS; principal; 2022-07-14)
DX: D50.9 Iron deficiency anemia, unspecified (principal); E87.1 Hypo-osmolality and hyponatremia; N39.0 Urinary tract infection, site not specified; I48.91 Unspecified atrial fibrillation; Z79.01 Long term (current) use of anticoagulants; F03.90 Unspecified dementia, unspecified severity, without behavioral disturbance, psychotic disturbance, mood disturbance, and anxiety; I73.9 Peripheral vascular disease, unspecified; I10 Essential (primary) hypertension; Z95.0 Presence of cardiac pacemaker; Z95.2 Presence of prosthetic heart valve; R55 Syncope and collapse; R29.6 Repeated falls; D72.819 Decreased white blood cell count, unspecified
CPT/HCPCS: 36415; 36430; 70450-TC; 71045-TC-FY; 72070-TC-FY; 72100-TC-FY; 72125-TC; 72128-TC; 72131-TC; 72170-TC-FY; 73521-TC-FY; 74176-TC; 80053; 80061; 81003; 82272; 82550; 82607; 82728; 82746; 83036; 83540; 83550; 83735; 83880; 84100; 84439; 84443; 84484; 85025; 85610; 85730; 86850; 86900; 86901; 86922; 93005; 93010; 93306-TC; 99285-25; C9803-CS; G0378; J1644; J1756; P9058; U0003; U0005

== ENCOUNTER 2022-09-11 08:56 | Observation (INO) | payer OTHER ==
[2022-09-11 10:03] LABS: BASO % 1.6 % (0-2.0); EOS % 5.3 % (0-4.5); HEMATOCRIT 24.1 % (32.4-45.2); HEMOGLOBIN 8.1 GM/dL (10.7-15.3); MCH 29.5 pg (25.7-33.7); MCHC 33.6 g/dl (32.0-36.0); MEAN CELL VOLUME 87.7 fl (80-96); MEAN PLT VOLUME 6.7 fl (7.5-11.1); NEUT % 60.1 % (42.8-82.8); PLATELET COUNT 153 10^3/uL (134-434); RBC 2.74 M/mm3 (3.60-5.2); RDW 18.4 % (11.6-15.6); WHITE BLOOD COUNT 2.1 K/mm3 (4.0-10.0)
[2022-09-11 10:12] LABS: INR 3.02 (0.83-1.09); PROTHROMBIN TIME (PATIENT) 35.1 SEC (9.7-13.0)
[2022-09-11 10:14] LABS: ACTIVATED PTT 44.6 SECONDS (25.2-36.5)
[2022-09-11 10:18] LABS: CALCIUM 8.5 mg/dL (8.5-10.1)
[2022-09-11 10:19] LABS: BLOOD UREA NITROGEN 15.6 mg/dL (7-18); MAGNESIUM 2.1 mg/dL (1.8-2.4)
[2022-09-11 10:22] LABS: CREATININE 0.6 mg/dL (0.55-1.3)
[2022-09-11 10:24] LABS: BILIRUBIN,TOTAL 0.3 mg/dL (0.2-1); TOT PROT 5.8 g/dl (6.4-8.2)
[2022-09-11] MEDS ORDERED: WARFARIN NA 3 MG TABLET PO SCH (18:00)
[2022-09-11] MEDS: DONEPEZIL HCL 10 MG TABLET (FP) PO SCH (22:20)
[2022-09-11] MEDS: DOCUSATE SODIUM 100 MG CAPSULE (FP) PO SCH (22:20)
[2022-09-11] MEDS: METOPROLOL TARTRATE 25 MG TABLET (FP) PO SCH (22:20)
[2022-09-11] MEDS: SILVER SULFADIAZINE 1% TOP CREAM 50 GM JAR TP SCH (23:41)
[2022-09-12] MEDS: ACETAMINOPHEN 325 MG TABLET (FP) PO PRN (00:01)
[2022-09-12 07:58] LABS: HEMATOCRIT 28.2 % (32.4-45.2); HEMOGLOBIN 9.3 GM/dL (10.7-15.3); LYMPH % 15.4 % (8-40); MCH 28.9 pg (25.7-33.7); MCHC 32.9 g/dl (32.0-36.0); MEAN CELL VOLUME 88.1 fl (80-96); MEAN PLT VOLUME 7.6 fl (7.5-11.1); NEUT % 67.6 % (42.8-82.8); PLATELET COUNT 162 10^3/uL (134-434); RBC 3.21 M/mm3 (3.60-5.2); RDW 17.9 % (11.6-15.6); WHITE BLOOD COUNT 2.9 K/mm3 (4.0-10.0)
[2022-09-12 08:23] LABS: INR 2.46 (0.83-1.09); PROTHROMBIN TIME (PATIENT) 28.5 SEC (9.7-13.0)
[2022-09-12 08:35] LABS: CALCIUM 8.8 mg/dL (8.5-10.1)
[2022-09-12 08:36] LABS: ALBUMIN 2.9 g/dl (3.4-5.0); BLOOD UREA NITROGEN 14.7 mg/dL (7-18)
[2022-09-12 08:39] LABS: CREATININE 0.5 mg/dL (0.55-1.3)
[2022-09-12 08:40] LABS: BILIRUBIN,TOTAL 0.8 mg/dL (0.2-1); TOT PROT 5.6 g/dl (6.4-8.2)
[2022-09-12] MEDS ORDERED: PATIENT'S OWN MEDICATION (NON-FORMULARY) (Ferrous Sulfate [Ferrous Sulfate] 325 MG Tablet) PO SCH (10:00)
[2022-09-12] MEDS: METOPROLOL TARTRATE 25 MG TABLET (FP) PO SCH ×2 (10:14→21:20)
[2022-09-12] MEDS: MULTIVITAMINS (DAILY MVI) TABLET (FP) PO SCH (10:14)
[2022-09-12] MEDS: HYDROCHLOROTHIAZIDE 25 MG TABLET (FP) PO SCH (10:14)
[2022-09-12] MEDS: AMIODARONE HCL 200 MG TABLET PO SCH (10:15)
[2022-09-12] MEDS: ASCORBIC ACID 500 MG TABLET (FP) PO SCH (10:15)
[2022-09-12] MEDS: POTASSIUM CHLORIDE TABS 20 MEQ TABLET.ER (FP) PO SCH (10:15)
[2022-09-12] MEDS: FERROUS SO4 325 MG TABLET (FP) PO SCH (10:15)
[2022-09-12] MEDS: PANTOPRAZOLE 20 MG TABLET PO SCH (10:15)
[2022-09-12] MEDS: SODIUM CHLORIDE 1 GM TABLET PO SCH (10:16)
[2022-09-12] MEDS: SILVER SULFADIAZINE 1% TOP CREAM 50 GM JAR TP SCH ×2 (12:42→21:20)
[2022-09-12] MEDS: WARFARIN NA 1 MG TABLET PO SCH (18:28)
[2022-09-12] MEDS: DOCUSATE SODIUM 100 MG CAPSULE (FP) PO SCH (21:20)
[2022-09-12] MEDS: DONEPEZIL HCL 10 MG TABLET (FP) PO SCH (21:20)
[2022-09-12] MEDS: MELATONIN 5 MG TABLETS PO PRN ×2 (23:28)
[2022-09-13] MEDS: METOPROLOL TARTRATE 25 MG TABLET (FP) PO SCH ×2 (09:08→21:20)
[2022-09-13] MEDS: PANTOPRAZOLE 20 MG TABLET PO SCH (09:08)
[2022-09-13] MEDS: ASCORBIC ACID 500 MG TABLET (FP) PO SCH (09:08)
[2022-09-13] MEDS: HYDROCHLOROTHIAZIDE 25 MG TABLET (FP) PO SCH (09:08)
[2022-09-13] MEDS: FERROUS SO4 325 MG TABLET (FP) PO SCH (09:08)
[2022-09-13] MEDS: SILVER SULFADIAZINE 1% TOP CREAM 50 GM JAR TP SCH ×2 (09:09→21:20)
[2022-09-13] MEDS: POTASSIUM CHLORIDE TABS 20 MEQ TABLET.ER (FP) PO SCH (09:09)
[2022-09-13] MEDS: AMIODARONE HCL 200 MG TABLET PO SCH (09:09)
[2022-09-13] MEDS: MULTIVITAMINS (DAILY MVI) TABLET (FP) PO SCH (09:09)
[2022-09-13] MEDS: SODIUM CHLORIDE 1 GM TABLET PO SCH (09:10)
[2022-09-13 17:26] VITALS: BMI 21.4
[2022-09-13] MEDS: WARFARIN NA 1 MG TABLET PO SCH (17:50)
[2022-09-13] MEDS: DONEPEZIL HCL 10 MG TABLET (FP) PO SCH (21:20)
[2022-09-13] MEDS: DOCUSATE SODIUM 100 MG CAPSULE (FP) PO SCH (21:20)
[2022-09-13] MEDS: MELATONIN 5 MG TABLETS PO PRN (21:20)
[2022-09-13] MEDS: ACETAMINOPHEN 325 MG TABLET (FP) PO PRN (21:20)
[2022-09-14] MEDS: AMINO ACIDS/PROTEIN HYDROLYS 30 ML LIQUID.PKT PO SCH (09:00)
[2022-09-14] MEDS: FERROUS SO4 325 MG TABLET (FP) PO SCH (09:20)
[2022-09-14] MEDS: AMIODARONE HCL 200 MG TABLET PO SCH (09:20)
[2022-09-14] MEDS: POTASSIUM CHLORIDE TABS 20 MEQ TABLET.ER (FP) PO SCH (09:20)
[2022-09-14] MEDS: HYDROCHLOROTHIAZIDE 25 MG TABLET (FP) PO SCH (09:20)
[2022-09-14] MEDS: PANTOPRAZOLE 20 MG TABLET PO SCH (09:20)
[2022-09-14] MEDS: MULTIVITAMINS (DAILY MVI) TABLET (FP) PO SCH (09:20)
[2022-09-14] MEDS: SODIUM CHLORIDE 1 GM TABLET PO SCH (09:20)
[2022-09-14] MEDS: ASCORBIC ACID 500 MG TABLET (FP) PO SCH (09:20)
[2022-09-14] MEDS: METOPROLOL TARTRATE 25 MG TABLET (FP) PO SCH ×2 (09:21→21:04)
[2022-09-14] MEDS: SILVER SULFADIAZINE 1% TOP CREAM 50 GM JAR TP SCH ×2 (10:50→21:04)
[2022-09-14] MEDS: WARFARIN NA 1 MG TABLET PO SCH (17:50)
[2022-09-14] MEDS: ACETAMINOPHEN 325 MG TABLET (FP) PO PRN (21:04)
[2022-09-14] MEDS: DOCUSATE SODIUM 100 MG CAPSULE (FP) PO SCH (21:04)
[2022-09-14] MEDS: MELATONIN 5 MG TABLETS PO PRN (21:04)
[2022-09-14] MEDS: DONEPEZIL HCL 10 MG TABLET (FP) PO SCH (21:04)
[2022-09-15 06:05] VITALS: RESP 18
[2022-09-15 08:37] LABS: INR 3.51 (0.83-1.09); PROTHROMBIN TIME (PATIENT) 40.9 SEC (9.7-13.0)
[2022-09-15 08:38] LABS: EOS % 3.7 % (0-4.5); HEMATOCRIT 28.8 % (32.4-45.2); HEMOGLOBIN 9.6 GM/dL (10.7-15.3); LYMPH % 13.6 % (8-40); MCH 29.4 pg (25.7-33.7); MCHC 33.3 g/dl (32.0-36.0); MEAN CELL VOLUME 88.3 fl (80-96); MEAN PLT VOLUME 7.4 fl (7.5-11.1); MONO % 10.1 % (3.8-10.2); NEUT % 71.6 % (42.8-82.8); PLATELET COUNT 176 10^3/uL (134-434); RBC 3.26 M/mm3 (3.60-5.2); RDW 18.5 % (11.6-15.6); WHITE BLOOD COUNT 3.4 K/mm3 (4.0-10.0)
[2022-09-15] MEDS: AMINO ACIDS/PROTEIN HYDROLYS 30 ML LIQUID.PKT PO SCH (08:42)
[2022-09-15 09:03] LABS: CALCIUM 8.3 mg/dL (8.5-10.1)
[2022-09-15 09:04] LABS: ALBUMIN 2.7 g/dl (3.4-5.0)
[2022-09-15 09:07] LABS: CREATININE 0.6 mg/dL (0.55-1.3)
[2022-09-15 09:08] LABS: BILIRUBIN,TOTAL 0.4 mg/dL (0.2-1); TOT PROT 5.2 g/dl (6.4-8.2)
[2022-09-15] MEDS: ASCORBIC ACID 500 MG TABLET (FP) PO SCH (09:59)
[2022-09-15] MEDS: MULTIVITAMINS (DAILY MVI) TABLET (FP) PO SCH (09:59)
[2022-09-15] MEDS: POTASSIUM CHLORIDE TABS 20 MEQ TABLET.ER (FP) PO SCH (09:59)
[2022-09-15] MEDS: FERROUS SO4 325 MG TABLET (FP) PO SCH (09:59)
[2022-09-15] MEDS: METOPROLOL TARTRATE 25 MG TABLET (FP) PO SCH (09:59)
[2022-09-15] MEDS: HYDROCHLOROTHIAZIDE 25 MG TABLET (FP) PO SCH (09:59)
[2022-09-15] MEDS: PANTOPRAZOLE 20 MG TABLET PO SCH (10:01)
[2022-09-15] MEDS: SODIUM CHLORIDE 1 GM TABLET PO SCH (10:01)
[2022-09-15] MEDS: AMIODARONE HCL 200 MG TABLET PO SCH (10:01)
[2022-09-15] MEDS: SILVER SULFADIAZINE 1% TOP CREAM 50 GM JAR TP SCH (10:01)
[2022-09-15 14:38] VITALS: BP 105/53; PULSE 60; TEMP 98
== END 2022-09-15 17:53 ==
LOC: JER 08:56 → JERBED 12:11 → J4S 20:26
PROVIDERS: ADMIT Internal Medicine; ATTEND Internal Medicine
PROC: 30233N1 Transfusion of Nonautologous Red Blood Cells into Peripheral Vein, Percutaneous Approach (ICD-10-PCS; principal; 2022-09-11)
DX: I11.0 Hypertensive heart disease with heart failure (principal); D64.9 Anemia, unspecified; R55 Syncope and collapse; R29.6 Repeated falls; Z79.01 Long term (current) use of anticoagulants; F03.90 Unspecified dementia, unspecified severity, without behavioral disturbance, psychotic disturbance, mood disturbance, and anxiety; I48.91 Unspecified atrial fibrillation; I34.1 Nonrheumatic mitral (valve) prolapse; I50.9 Heart failure, unspecified; Z95.0 Presence of cardiac pacemaker; I73.9 Peripheral vascular disease, unspecified
CPT/HCPCS: 36415; 36430; 71045-TC-FY; 74176-TC; 80053; 83735; 83880; 84484; 85025; 85610; 85730; 86850; 86900; 86901; 86922; 93005; 93010; 93971-TC; 99285-25; C9803-CS; G0378; P9058; U0003; U0005

== ENCOUNTER 2022-10-07 10:46 | Emergency (ER) | payer OTHER ==
[2022-10-07 11:11] VITALS: TEMP 97.9; BMI 21.4
[2022-10-07 11:54] LABS: INR 3.89 (0.83-1.09); PROTHROMBIN TIME (PATIENT) 45.3 SEC (9.7-13.0)
[2022-10-07 12:01] LABS: BASO % 1.4 % (0-2.0); EOS % 3.4 % (0-4.5); HEMATOCRIT 26.8 % (32.4-45.2); HEMOGLOBIN 8.7 GM/dL (10.7-15.3); LYMPH % 16.1 % (8-40); MCH 29.4 pg (25.7-33.7); MCHC 32.6 g/dl (32.0-36.0); MEAN CELL VOLUME 90.4 fl (80-96); MEAN PLT VOLUME 7.4 fl (7.5-11.1); MONO % 15.6 % (3.8-10.2); NEUT % 63.5 % (42.8-82.8); PLATELET COUNT 186 10^3/uL (134-434); RBC 2.97 M/mm3 (3.60-5.2); RDW 16.9 % (11.6-15.6); WHITE BLOOD COUNT 2.8 K/mm3 (4.0-10.0)
[2022-10-07 12:14] LABS: CALCIUM 8.9 mg/dL (8.5-10.1)
[2022-10-07 12:15] LABS: BLOOD UREA NITROGEN 18.4 mg/dL (7-18)
[2022-10-07 12:17] LABS: CREATININE 0.7 mg/dL (0.55-1.3)
[2022-10-07 12:19] LABS: TOT PROT 6.1 g/dl (6.4-8.2)
[2022-10-07 12:20] LABS: BILIRUBIN,TOTAL 0.3 mg/dL (0.2-1)
[2022-10-07 13:12] VITALS: BP 111/79; PULSE 68; RESP 19
== END 2022-10-07 15:57 | disposition home or self-care (01) ==
LOC: JER 10:46
DX: D64.9 Anemia, unspecified (principal); R79.1 Abnormal coagulation profile
CPT/HCPCS: 36415; 80053; 85025; 85610; 86850; 86900; 86901; 93005; 93010; 99285-25

== ENCOUNTER 2022-11-03 10:00 | Observation (INO) | payer OTHER ==
[2022-11-03 11:35] LABS: BASO % 1.3 % (0-2.0); HEMATOCRIT 21.8 % (32.4-45.2); LYMPH % 14.8 % (8-40); MCH 29.2 pg (25.7-33.7); MCHC 31.5 g/dl (32.0-36.0); MEAN CELL VOLUME 92.6 fl (80-96); MEAN PLT VOLUME 6.8 fl (7.5-11.1); MONO % 12.6 % (3.8-10.2); NEUT % 67.3 % (42.8-82.8); PLATELET COUNT 204 10^3/uL (134-434); RBC 2.36 M/mm3 (3.60-5.2); RDW 16.6 % (11.6-15.6); WHITE BLOOD COUNT 2.6 K/mm3 (4.0-10.0)
[2022-11-03 11:39] LABS: HEMOGLOBIN 6.9 GM/dL (10.7-15.3)
[2022-11-03 11:41] LABS: PROTHROMBIN TIME (PATIENT) 53.6 SEC (9.7-13.0)
[2022-11-03] MEDS ORDERED: ACETAMINOPHEN 325 MG TABLET (FP) PO PRN (11:42)
[2022-11-03] MEDS ORDERED: MELATONIN 5 MG TABLETS PO PRN (11:42)
[2022-11-03 11:43] LABS: ACTIVATED PTT 50.8 SECONDS (25.2-36.5)
[2022-11-03] MEDS ORDERED: WARFARIN NA 1 MG TABLET PO SCH ×3 (11:45→13:18)
[2022-11-03 11:56] LABS: INR 4.59 (0.83-1.09)
[2022-11-03 12:03] LABS: ALBUMIN 2.5 g/dl (3.4-5.0); CALCIUM 8.5 mg/dL (8.5-10.1)
[2022-11-03 12:04] LABS: BLOOD UREA NITROGEN 23.9 mg/dL (7-18)
[2022-11-03 12:06] LABS: CREATININE 0.7 mg/dL (0.55-1.3)
[2022-11-03 12:08] LABS: BILIRUBIN,TOTAL 0.3 mg/dL (0.2-1); TOT PROT 5.2 g/dl (6.4-8.2)
[2022-11-03] MEDS: WARFARIN NA 1 MG TABLET PO SCH ×2 (12:20→12:24)
[2022-11-03] MEDS ORDERED: FUROSEMIDE 40 MG/4 ML INJECTABLE VIAL ONE (17:11)
[2022-11-03] MEDS ORDERED: FUROSEMIDE 40 MG/4 ML INJECTABLE VIAL IVPUSH ONE (17:15)
[2022-11-03] MEDS ORDERED: WARFARIN NA 2 MG TABLET PO SCH (18:00)
[2022-11-03] MEDS ORDERED: DONEPEZIL HCL 10 MG TABLET (FP) PO SCH (22:00)
[2022-11-03] MEDS ORDERED: DOCUSATE SODIUM 100 MG CAPSULE (FP) PO SCH (22:00)
[2022-11-03] MEDS ORDERED: PATIENT'S OWN MEDICATION (NON-FORMULARY) (Aa/Hydrolyzed Collagen, Whey [Lps 15-30 Liquid] PO SCH (22:00)
[2022-11-03] MEDS: METOPROLOL TARTRATE 25 MG TABLET (FP) PO SCH (22:09)
[2022-11-04 02:39] VITALS: BMI 20.2
[2022-11-04 09:41] LABS: EOS % 5.1 % (0-4.5); HEMATOCRIT 27.7 % (32.4-45.2); HEMOGLOBIN 8.9 GM/dL (10.7-15.3); LYMPH % 18.1 % (8-40); MCH 29.5 pg (25.7-33.7); MCHC 32.4 g/dl (32.0-36.0); MEAN CELL VOLUME 91.3 fl (80-96); MEAN PLT VOLUME 6.4 fl (7.5-11.1); MONO % 10.9 % (3.8-10.2); NEUT % 64.9 % (42.8-82.8); PLATELET COUNT 189 10^3/uL (134-434); RBC 3.03 M/mm3 (3.60-5.2); RDW 15.9 % (11.6-15.6); WHITE BLOOD COUNT 2.7 K/mm3 (4.0-10.0)
[2022-11-04 09:47] LABS: INR 3.94 (0.83-1.09); PROTHROMBIN TIME (PATIENT) 45.9 SEC (9.7-13.0)
[2022-11-04] MEDS ORDERED: FERROUS SO4 325 MG TABLET (FP) PO SCH (10:00)
[2022-11-04] MEDS ORDERED: ASCORBIC ACID 500 MG TABLET (FP) PO SCH (10:00)
[2022-11-04] MEDS ORDERED: POTASSIUM CHLORIDE TABS 20 MEQ TABLET.ER (FP) PO SCH (10:00)
[2022-11-04] MEDS ORDERED: AMIODARONE HCL 200 MG TABLET PO SCH (10:00)
[2022-11-04] MEDS ORDERED: SODIUM CHLORIDE 1 GM TABLET PO SCH (10:00)
[2022-11-04] MEDS ORDERED: PANTOPRAZOLE 20 MG TABLET PO SCH (10:00)
[2022-11-04] MEDS ORDERED: HYDROCHLOROTHIAZIDE 25 MG TABLET (FP) PO SCH (10:00)
[2022-11-04] MEDS ORDERED: MULTIVITAMINS (DAILY MVI) TABLET (FP) PO SCH (10:00)
[2022-11-04 10:20] LABS: CALCIUM 8.6 mg/dL (8.5-10.1)
[2022-11-04 10:21] LABS: ALBUMIN 2.6 g/dl (3.4-5.0)
[2022-11-04 10:23] LABS: CREATININE 0.6 mg/dL (0.55-1.3)
[2022-11-04 10:25] LABS: BILIRUBIN,TOTAL 1.6 mg/dL (0.2-1); TOT PROT 5.5 g/dl (6.4-8.2)
[2022-11-04] MEDS: METOPROLOL TARTRATE 25 MG TABLET (FP) PO SCH (10:38)
[2022-11-04 13:09] VITALS: BP 124/69; PULSE 61; RESP 16; TEMP 97.7
== END 2022-11-04 15:23 ==
LOC: JER 10:00 → JERBED 11:58 → J5S 19:53
PROVIDERS: ADMIT Internal Medicine; ATTEND Internal Medicine
PROC: 3E033GC Introduction of Other Therapeutic Substance into Peripheral Vein, Percutaneous Approach (ICD-10-PCS; principal; 2022-11-03)
DX: I25.10 Atherosclerotic heart disease of native coronary artery without angina pectoris (principal); I11.0 Hypertensive heart disease with heart failure; I48.0 Paroxysmal atrial fibrillation; Z79.01 Long term (current) use of anticoagulants; D64.9 Anemia, unspecified; I10 Essential (primary) hypertension; K21.9 Gastro-esophageal reflux disease without esophagitis; R55 Syncope and collapse; F03.90 Unspecified dementia, unspecified severity, without behavioral disturbance, psychotic disturbance, mood disturbance, and anxiety; Z95.0 Presence of cardiac pacemaker; Z88.8 Allergy status to other drugs, medicaments and biological substances
CPT/HCPCS: 0241U-QW; 36415; 36430; 71045-TC-FY; 80053; 85025; 85610; 85730; 86850; 86900; 86901; 86922; 93005; 93010; 93971-TC; 96374; 99285-25; G0378; P9058

== ENCOUNTER 2022-12-02 11:54 | Observation (INO) | payer OTHER ==
[2022-12-02 12:13] VITALS: BMI 23.6
[2022-12-02 13:06] LABS: HEMATOCRIT 23.2 % (32.4-45.2); HEMOGLOBIN 7.6 GM/dL (10.7-15.3); LYMPH % 18.2 % (8-40); MCH 30.2 pg (25.7-33.7); MCHC 32.7 g/dl (32.0-36.0); MEAN CELL VOLUME 92.2 fl (80-96); MEAN PLT VOLUME 7.2 fl (7.5-11.1); MONO % 14.1 % (3.8-10.2); NEUT % 63.7 % (42.8-82.8); PLATELET COUNT 147 10^3/uL (134-434); RBC 2.51 M/mm3 (3.60-5.2); RDW 16.6 % (11.6-15.6); WHITE BLOOD COUNT 2.5 K/mm3 (4.0-10.0)
[2022-12-02 13:16] LABS: PROTHROMBIN TIME (PATIENT) 50.1 SEC (9.7-13.0)
[2022-12-02 13:19] LABS: ACTIVATED PTT 46.6 SECONDS (25.2-36.5)
[2022-12-02 13:26] LABS: INR 4.29 (0.83-1.09)
[2022-12-02 13:35] LABS: ALBUMIN 2.6 g/dl (3.4-5.0); BLOOD UREA NITROGEN 25.2 mg/dL (7-18); CALCIUM 8.7 mg/dL (8.5-10.1)
[2022-12-02 13:37] LABS: CREATININE 0.8 mg/dL (0.55-1.3)
[2022-12-02 13:39] LABS: TOT PROT 5.3 g/dl (6.4-8.2)
[2022-12-02 13:50] LABS: BILIRUBIN,TOTAL 0.3 mg/dL (0.2-1)
[2022-12-02] MEDS ORDERED: MELATONIN 5 MG TABLETS PO PRN (15:15)
[2022-12-02] MEDS ORDERED: WARFARIN NA 1 MG TABLET PO SCH (15:15)
[2022-12-02] MEDS ORDERED: ACETAMINOPHEN 325 MG TABLET (FP) PO PRN (15:15)
[2022-12-02] MEDS ORDERED: PATIENT'S OWN MEDICATION (NON-FORMULARY) (Aa/Hydrolyzed Collagen, Whey [Lps 15-30 Liquid] PO SCH (22:00)
[2022-12-02] MEDS: METOPROLOL TARTRATE 25 MG TABLET (FP) PO SCH (22:09)
[2022-12-02] MEDS: DONEPEZIL HCL 10 MG TABLET (FP) PO SCH (22:09)
[2022-12-02] MEDS: DOCUSATE SODIUM 100 MG CAPSULE (FP) PO SCH (22:09)
[2022-12-02] MEDS: SILVER SULFADIAZINE 1% TOP CREAM 50 GM JAR TP SCH (23:45)
[2022-12-03 09:32] LABS: EOS % 3.2 % (0-4.5); HEMATOCRIT 29.8 % (32.4-45.2); LYMPH % 14.3 % (8-40); MCH 30.1 pg (25.7-33.7); MCHC 33.4 g/dl (32.0-36.0); MEAN CELL VOLUME 90.1 fl (80-96); MEAN PLT VOLUME 7.2 fl (7.5-11.1); MONO % 9.6 % (3.8-10.2); NEUT % 71.9 % (42.8-82.8); PLATELET COUNT 142 10^3/uL (134-434); RBC 3.31 M/mm3 (3.60-5.2); RDW 17.3 % (11.6-15.6); WHITE BLOOD COUNT 3.2 K/mm3 (4.0-10.0)
[2022-12-03 09:40] LABS: INR 3.01 (0.83-1.09); PROTHROMBIN TIME (PATIENT) 34.5 SEC (9.7-13.0)
[2022-12-03] MEDS: MULTIVITAMINS (DAILY MVI) TABLET (FP) PO SCH (09:58)
[2022-12-03] MEDS: METOPROLOL TARTRATE 25 MG TABLET (FP) PO SCH ×2 (09:59→22:01)
[2022-12-03] MEDS ORDERED: POTASSIUM CHLORIDE TABS 20 MEQ TABLET.ER (FP) PO SCH (10:00)
[2022-12-03] MEDS ORDERED: HYDROCHLOROTHIAZIDE 25 MG TABLET (FP) PO SCH (10:00)
[2022-12-03] MEDS: ASCORBIC ACID 500 MG TABLET (FP) PO SCH (10:00)
[2022-12-03] MEDS: PANTOPRAZOLE 20 MG TABLET PO SCH (10:00)
[2022-12-03] MEDS ORDERED: AMIODARONE HCL 200 MG TABLET PO SCH (10:00)
[2022-12-03] MEDS: FERROUS SO4 325 MG TABLET (FP) PO SCH (10:00)
[2022-12-03] MEDS: SILVER SULFADIAZINE 1% TOP CREAM 50 GM JAR TP SCH ×2 (10:01→22:02)
[2022-12-03 10:03] LABS: ALBUMIN 2.7 g/dl (3.4-5.0); BLOOD UREA NITROGEN 19.9 mg/dL (7-18); CALCIUM 8.6 mg/dL (8.5-10.1)
[2022-12-03 10:05] LABS: CREATININE 0.6 mg/dL (0.55-1.3)
[2022-12-03 10:07] LABS: BILIRUBIN,TOTAL 0.9 mg/dL (0.2-1); TOT PROT 5.4 g/dl (6.4-8.2)
[2022-12-03] MEDS: SACUBITRIL/VALSARTAN 24 MG-26 MG TABLET PO SCH ×2 (12:14→22:01)
[2022-12-03] MEDS: SODIUM CHLORIDE 1 GM TABLET PO SCH (12:14)
[2022-12-03] MEDS ORDERED: WARFARIN NA 2 MG TABLET PO SCH ×2 (18:00)
[2022-12-03] MEDS: DOCUSATE SODIUM 100 MG CAPSULE (FP) PO SCH (22:01)
[2022-12-03] MEDS: DONEPEZIL HCL 10 MG TABLET (FP) PO SCH (22:01)
[2022-12-04] MEDS: ASCORBIC ACID 500 MG TABLET (FP) PO SCH (09:17)
[2022-12-04] MEDS: MULTIVITAMINS (DAILY MVI) TABLET (FP) PO SCH (09:18)
[2022-12-04] MEDS: SODIUM CHLORIDE 1 GM TABLET PO SCH (09:18)
[2022-12-04] MEDS: SACUBITRIL/VALSARTAN 24 MG-26 MG TABLET PO SCH (09:18)
[2022-12-04] MEDS: PANTOPRAZOLE 20 MG TABLET PO SCH (09:18)
[2022-12-04] MEDS: FERROUS SO4 325 MG TABLET (FP) PO SCH (09:18)
[2022-12-04] MEDS: METOPROLOL TARTRATE 25 MG TABLET (FP) PO SCH (09:35)
[2022-12-04 09:37] VITALS: PULSE 65; RESP 18
[2022-12-04] MEDS ORDERED: POLYETHYLENE GLYCOL (HEALTHYLAX) 3350 17 GM PACKET PO SCH (10:00)
[2022-12-04 10:32] LABS: BASO % 1.2 % (0-2.0); EOS % 3.4 % (0-4.5); HEMATOCRIT 37.7 % (32.4-45.2); HEMOGLOBIN 12.3 GM/dL (10.7-15.3); INR 2.29 (0.83-1.09); LYMPH % 14.3 % (8-40); MCH 29.7 pg (25.7-33.7); MCHC 32.7 g/dl (32.0-36.0); MEAN CELL VOLUME 90.8 fl (80-96); MEAN PLT VOLUME 7.4 fl (7.5-11.1); MONO % 10.9 % (3.8-10.2); NEUT % 70.2 % (42.8-82.8); PLATELET COUNT 185 10^3/uL (134-434); PROTHROMBIN TIME (PATIENT) 26.4 SEC (9.7-13.0); RBC 4.15 M/mm3 (3.60-5.2); RDW 16.9 % (11.6-15.6); WHITE BLOOD COUNT 3.5 K/mm3 (4.0-10.0)
[2022-12-04 10:50] LABS: CALCIUM 8.9 mg/dL (8.5-10.1)
[2022-12-04 10:51] LABS: ALBUMIN 2.9 g/dl (3.4-5.0); BLOOD UREA NITROGEN 11.1 mg/dL (7-18)
[2022-12-04 10:54] LABS: CREATININE 0.6 mg/dL (0.55-1.3)
[2022-12-04 10:58] LABS: BILIRUBIN,TOTAL 0.8 mg/dL (0.2-1)
[2022-12-04 13:32] VITALS: BP 96/54; TEMP 98.8
[2022-12-04] MEDS ORDERED: WARFARIN NA 1 MG TABLET PO SCH (18:00)
== END 2022-12-04 16:21 ==
LOC: JER 11:54 → JERBED 13:43 → J7W 15:46
PROVIDERS: ADMIT Specialist; ATTEND Specialist
PROC: 30233N1 Transfusion of Nonautologous Red Blood Cells into Peripheral Vein, Percutaneous Approach (ICD-10-PCS; principal; 2022-12-02)
DX: I48.0 Paroxysmal atrial fibrillation (principal); F03.90 Unspecified dementia, unspecified severity, without behavioral disturbance, psychotic disturbance, mood disturbance, and anxiety; I11.0 Hypertensive heart disease with heart failure; D64.9 Anemia, unspecified; K21.9 Gastro-esophageal reflux disease without esophagitis; Z79.01 Long term (current) use of anticoagulants; R55 Syncope and collapse; R29.6 Repeated falls; I73.9 Peripheral vascular disease, unspecified; I50.9 Heart failure, unspecified; Z95.810 Presence of automatic (implantable) cardiac defibrillator; Z99.3 Dependence on wheelchair; D72.819 Decreased white blood cell count, unspecified; R79.1 Abnormal coagulation profile; Z88.8 Allergy status to other drugs, medicaments and biological substances
CPT/HCPCS: 0241U-QW; 36415; 36430; 36511; 74176-TC; 80053; 82272; 82607; 82728; 82746; 83540; 83550; 83605; 83690; 84484; 85025; 85610; 85730; 86850; 86900; 86901; 86922; 93005; 93010; 99285-25; G0378; P9016; P9058